=== PATIENT | female | born 1970 | race American Indian/Alaskan Native ===

== ENCOUNTER 2022-06-26 19:26 | Emergency (ER) | payer OTHER ==
[2022-06-26 20:58] VITALS: BP 112/73
--- NOTE | 2022-06-26 21:42 | XRay Report ---
RIGHT WRIST 3 VIEW(S) INDICATION / CLINICAL INFORMATION: Injury with right wrist pain COMPARISON: None available. FINDINGS: BONES / JOINT(S): No acute fracture or subluxation. No significant arthritis. Mild subchondral cystic change along the ulnar aspect of the base of the lunate. SOFT TISSUES: No significant abnormality. ADDITIONAL FINDINGS: None. IMPRESSION: 1. No acute findings. Signer Name: Zaria Arteaga MD Signed: 06/26/2022 9:38 PM Workstation Name: [id number]
--- NOTE | 2022-06-27 01:04 | Emergency Department Report ---
ED Upper Extremity Inj HPI - General Chief Complaint: Extremity Injury, Upper Stated Complaint: FELL ON WRIST /ELBROW Time Seen by Provider: 06/27/22 00:57 Source: patient Mode of arrival: Ambulatory Limitations: No Limitations - History of Present Illness Initial Comments: 51 yo F who present with right wrist pain that started after a fall while ice sc aling tonight. Pain is associated with mild swellings. Moving the wrist joint worsen pain. Bending also worsen pain. No other modifying or associated factors. MD Complaint: Injury to:: right, wrist - Related Data Previous Rx's Medication Instructions Recorded Last Taken Type Ibuprofen [Motrin] 800 mg PO Q8HR PRN #30 tablet 01/08/17 Unknown Rx traMADoL [Ultram 50 MG tab] 50 mg PO Q6HR PRN #30 tablet 01/08/17 Unknown Rx Ketorolac [Toradol] 10 mg PO Q4HR PRN 5 Days #20 06/27/22 Unknown Rx tablet NS Ondansetron (Nf) [Zofran TAB] 8 mg PO Q8HR PRN 4 Days #12 tablet 06/27/22 Unknown Rx NS Allergies Allergy/AdvReac Type Severity Reaction Status Date / Time acetaminophen [From Tylox] Allergy Unknown Verified 06/26/22 21:00 codeine Allergy Unknown Verified 01/07/17 20:37 diphenhydramine Allergy Unknown Verified 06/26/22 21:00 [From Benadryl] oxycodone [From Tylox] Allergy Unknown Verified 06/26/22 21:00 ED Review of Systems ROS: Stated complaint: FELL ON WRIST /ELBROW Other details as noted in HPI Comment: All other systems reviewed and negative Musculoskeletal: joint swelling, arthralgia, myalgia ED Past Medical Hx - Surgical History Additional Surgical History: HYSTERECTOMY - Social History Smoking Status: Never Smoker Substance Use Type: None - Medications Home Medications: Home Medications Medication Instructions Recorded Confirmed Last Taken Type Ibuprofen [Motrin] 800 mg PO Q8HR PRN #30 tablet 01/08/17 Unknown Rx traMADoL [Ultram 50 MG tab] 50 mg PO Q6HR PRN #30 tablet 01/08/17 Unknown Rx Ketorolac [Toradol] 10 mg PO Q4HR PRN 5 Days #20 06/27/22 Unknown Rx tablet NS Ondansetron (Nf) [Zofran TAB] 8 mg PO Q8HR PRN 4 Days #12 tablet 06/27/22 Unknown Rx NS ED Physical Exam - General Limitations: No Limitations General appearance: alert, in no apparent distress - Head Head exam: Present: atraumatic, normal inspection - Eye Eye exam: Present: normal appearance Pupils: Present: normal accommodation - ENT ENT exam: Present: normal exam, normal orophraynx - Neck Neck exam: Present: normal inspection, full ROM. Absent: tenderness - Respiratory Respiratory exam: Present: normal lung sounds bilaterally. Absent: respiratory distress, accessory muscle use - Cardiovascular Cardiovascular Exam: Present: regular rate, normal rhythm, normal heart sounds - GI/Abdominal GI/Abdominal exam: Present: soft, normal bowel sounds. Absent: distended, tend erness - Extremities Exam Extremities exam: Present: tenderness (lateral wrist with mild swelling), normal capillary refill, joint swelling. Absent: pedal edema - Back Exam Back exam: Absent: tenderness - Neurological Exam Neurological exam: Present: alert, oriented X3 - Psychiatric Psychiatric exam: Present: normal affect, normal mood - Skin Skin exam: Present: warm, normal color ED Course Vital Signs 06/26/22 20:54 Temperature 97.8 F Pulse Rate 72 Respiratory 18 Rate Blood Pressure 112/73 O2 Sat by Pulse 100 Oximetry ED Medical Decision Making - Medical Decision Making here with a fall on the outreach hand and now with right wrist pain with swellings-- which raise concern for fx or dislocation so will order xray -- xray read to be with no acute findings--this is likely sprains so will encourage ice application and use of wrist brace with pain medication --on discharge and with close follow up with PCP Critical care attestation.: If time is entered above; I have spent that time in minutes in the direct care of this critically ill patient, excluding procedure time. ED Disposition Clinical Impression: Wrist pain, right Sprain of wrist, right Qualifiers: Encounter type: initial encounter Qualified Code(s): S63.501A - Unspecified sprain of right wrist, initial encounter Disposition: HOME / SELF CARE / HOMELESS Is pt being admited?: No Does the pt Need Aspirin: No Condition: Stable Instructions: How to Use Cold Therapy, [id number], Wrist Pain, Adult, [id number], Wrist Sprain, Adult, Wrist Sprain Rehab-SportsMed Additional Instructions: Follow the above printed instruction closely to help your overall symptoms Take your pain medication as prescribed to help swelling and eventually your pain Used wrist brace to stabilize your wrist and prevent reinjury Call and follow-up with your primary doctor in the next 3 to 5 days for progress Elevate your wrist above your buttocks when lying down to help with swelling Call or return to emergency room if he has pain worsening while on the pain medication and the above treatment Prescriptions: Ketorolac [Toradol] 10 mg PO Q4HR PRN 5 Days #20 tablet NS PRN Reason: Pain Ondansetron (Nf) [Zofran TAB] 8 mg PO Q8HR PRN 4 Days #12 tablet NS PRN Reason: Nausea Referrals: RAUL CONNOR MD [Referring] - 3-5 Days Time of Disposition: 01:12
== END 2022-06-27 01:40 | disposition home or self-care (01) ==
LOC: ED 19:26
DX: S63.501A Unspecified sprain of right wrist, initial encounter (principal); M25.531 Pain in right wrist; Z91.09 Other allergy status, other than to drugs and biological substances; X58.XXXA Exposure to other specified factors, initial encounter; Y93.89 Activity, other specified; Y92.89 Other specified places as the place of occurrence of the external cause; Y99.8 Other external cause status
CPT/HCPCS: 99283